=== PATIENT | female | born 1940 | race Caucasian/White ===

== ENCOUNTER → 2016-10-12 | Outpatient (CLI) | payer OTHER | LOC: FIMAGING 12:35 | PROVIDERS: ATTEND Midwife | DX: I86.2 Pelvic varices (principal); D25.9 Leiomyoma of uterus, unspecified ==

== ENCOUNTER 2018-04-25 09:19 | Emergency (ER) | payer OTHER ==
--- NOTE | 2018-04-25 10:11 | EDPHY ---
H & P Stated Complaint: HTN 191/121 L[place] ( IN MARCH) Time Seen by Provider: 04/25/18 10:10 HPI/ROS: HPI: This is a 77-year-old female who presents with Chief Complaint: Hypertension Location: heart Quality: Elevated blood pressure Duration: 2 days Signs and Symptoms: no shortness of breath at rest, no shortness of breath on exertion, no cough, no chest pain, no palpitations, no lower extremity edema, no wheezing, no orthopnea, no paroxysmal nocturnal dyspnea, no fever, no injury/ trauma, no hemoptysis, no carpal pedal spasms Timing: Acute on chronic Severity: [id number] Context: Patient has a history of hypertension secondary to renal carcinoma with nephrectomy in 2004 presents with 2 day history of "not feeling right" and mild dull headache in the morning when she wakes up. Patient reports that she took Advil with resolution of the headache. Patient reports that she recently returned after 7 weeks stay from [facility] where she stayed with her son who is a principal at a school. Patient has been taking lisinopril 10 mg since early 1999. Patient reports that she also had to have lisinopril and Norvasc at 1 time but the Norvasc was stopped in 2004 as her blood pressure was "too low." Patient reports that yesterday and today she woke up with a mild dull generalized headache, not worst headache of her life and denies thunderclap symptoms. She reports that she meditated and did not have resolution of symptoms. She went to her daughter's and checked her blood pressure and it was 150/110. Patient admits that she does have white coat hypertension when she sees her primary care provider and her next appointment is in June. PCP is Dr. Bre Castro. Has had Holter monitor in past for arrhythmias. Modifying Factors: Lisinopril 10 mg and aspirin 81 mg daily Comment: ROS: A comprehensive 10 system review of systems is otherwise negative aside from elements mentioned in the history of present illness. MEDICAL/SURGICAL/SOCIAL HISTORY: Medical history: Hypertension, kidney failure Surgical history: Nephrectomy Social history: Retired. Recent . Denies tobacco, alcohol, drug use. CONSTITUTIONAL: Polite and cooperative, slightly anxious, elderly white female , awake and alert, no obvious distress HEENT: Atraumatic and normocephalic, PERRL, EOMI. Nares patent; no rhinorrhea; no nasal mucosal edema. Tympanic membranes clear. Oropharynx clear, no exudate and moist pink mucosa. Airway patent. No lymphadenopathy. No meningismus. No carotid bruits. Cardiovascular: Normal S1/S2, regular rate, regular rhythm, without murmur rub or gallop. PULMONARY/CHEST: Symmetrical and nontender. Clear to auscultation bilaterally. Good air movement. No accessory muscle usage. ABDOMEN: Soft, nondistended, nontender, no rebound, no guarding, no peritoneal signs, no masses or organomegaly. No CVAT. EXTREMITIES: 2/2 pulses, strength 5/5, no deformities, no clubbing, no cyanosis or edema. NEUROLOGICAL: no focal neuro deficits. GCS 15. SKIN: Warm and dry, no erythema. no rash. Good capillary refill. Source: Patient Exam Limitations: No limitations - Personal History Current Tetanus Diphtheria and Acellular Pertussis (TDAP): No - Medical/Surgical History Hx Asthma: No Hx Chronic Respiratory Disease: No Hx Diabetes: No Hx Cardiac Disease: No Hx Renal Disease: Yes Hx Cirrhosis: No Hx Alcoholism: No Hx HIV/AIDS: No Hx Splenectomy or Spleen Trauma: No Other PMH: HTN KIDNEY FAILURE NEPHRECTOMY - Social History Smoking Status: Never smoked Constitutional: Initial Vital Signs Temperature (C) 36.4 C 04/25/18 09:25 Heart Rate 92 04/25/18 09:25 Respiratory Rate 17 04/25/18 09:25 Blood Pressure 191/121 H 04/25/18 09:25 O2 Sat (%) 93 04/25/18 09:25 O2 Delivery Mode Room Air Allergies/Adverse Reactions: No Known Allergies Allergy (Unverified 11/09/15 08:07) Home Medications: Medication Instructions Recorded Lisinopril [Zestril 20 mg (*)] 20 mg PO 11/09/15 Acyclovir 04/25/18 Lisinopril [Zestril 20 mg (*)] 20 mg PO DAILY #30 tab 04/25/18 Symbicort 160-4.5 Mcg Inh (*) 04/25/18 Medical Decision Making ED Course/Re-evaluation: Vital signs reviewed and show blood pressure 191/121 upon arrival. Placed on site monitor. Patient denies headache upon arrival to the emergency room. She is asymptomatic and has no chest pain/shortness of breath. EKG my read and with attending shows normal sinus rhythm with no acute ischemic changes. IV access, laboratory studies ordered to evaluate for end-organ dysfunction. Labs reviewed. No signs of leukocytosis/anemia/platelet dysfunction/BHARGAVI/ electrolyte imbalance/VTE/ACS. Patient given 20 mg lisinopril in the emergency room. HEART score= intermediate risk I reviewed the share decision making instrument with the patient, including risk of MACE, and the patient (and family) that are in agreement with the chosen disposition being discharged home with Cardiology follow-up.. Patient will increase her lisinopril to 20 mg daily, follow-up with PCP this week for blood pressure monitoring, and patient has been seen by [facility] in the past and will follow-up This patient was seen under the supervision of my secondary supervising physician. I evaluated care for this patient with attending. Discussed this patient with Dr. Figueroa. Differential Diagnosis: Differential diagnosis includes but is not limited to anxiety, hypertension uncontrolled, hypertensive urgency, hypertensive malignancy, acute kidney injury - Data Points Laboratory Results: Laboratory Results 04/25/18 10:05 04/25/18 10:05 04/25/18 04/25/18 04/25/18 11:19 10:24 10:05 WBC RBC Hgb Hct MCV MCH MCHC RDW Plt Count MPV Neut % (Auto) Lymph % (Auto) [place] % (Auto) Eos % (Auto) Baso % (Auto) Nucleat RBC Rel Count Absolute Neuts (auto) Absolute Lymphs (auto) Absolute Monos (auto) Absolute Eos (auto) Absolute Basos (auto) Absolute Nucleated RBC Immature Gran % Immature Gran # D-Dimer Sodium 138 mEq/L mEq/L (135-145) Potassium 3.6 mEq/L mEq/L (3.5-5.2) Chloride 107 mEq/L mEq/L (97-110) Carbon Dioxide 25 mEq/l mEq/l (22-31) Anion Gap 6 mEq/L mEq/L (6-14) BUN 19 mg/dL mg/dL (7-23) Creatinine 1.0 mg/dL mg/dL (0.6-1.0) Estimated GFR 54 Glucose 73 mg/dL mg/dL (70-100) Calcium 9.3 mg/dL mg/dL (8.5-10.4) POC Troponin I 0.00 ng/mL ng/mL 0.01 ng/mL ng/mL (0.00-0.08) (0.00-0.08) 04/25/18 04/25/18 10:05 10:05 WBC 5.75 10^3/uL 10^3/uL (3.80-9.50) RBC 4.76 10^6/uL 10^6/uL (4.18-5.33) Hgb 15.0 g/dL g/dL (12.6-16.3) Hct 44.3 % % (38.0-47.0) MCV 93.1 fL fL (81.5-99.8) MCH 31.5 pg pg (27.9-34.1) MCHC 33.9 g/dL g/dL (32.4-36.7) RDW 12.4 % % (11.5-15.2) Plt Count 174 10^3/uL 10^3/uL (150-400) MPV 12.5 fL H fL (8.7-11.7) Neut % (Auto) 53.8 % % (39.3-74.2) Lymph % (Auto) 25.4 % % (15.0-45.0) [place] % (Auto) 8.3 % % (4.5-13.0) Eos % (Auto) 11.1 % H % (0.6-7.6) Baso % (Auto) 0.9 % % (0.3-1.7) Nucleat RBC Rel Count 0.0 % % (0.0-0.2) Absolute Neuts (auto) 3.09 10^3/uL 10^3/uL (1.70-6.50) Absolute Lymphs (auto) 1.46 10^3/uL 10^3/uL (1.00-3.00) Absolute Monos (auto) 0.48 10^3/uL 10^3/uL (0.30-0.80) Absolute Eos (auto) 0.64 10^3/uL H 10^3/uL (0.03-0.40) Absolute Basos (auto) 0.05 10^3/uL 10^3/uL (0.02-0.10) Absolute Nucleated RBC 0.00 10^3/uL 10^3/uL (0-0.01) Immature Gran % 0.5 % % (0.0-1.1) Immature Gran # 0.03 10^3/uL 10^3/uL (0.00-0.10) D-Dimer 0.42 ug/mLFEU ug/mLFEU (0.00-0.50) Sodium Potassium Chloride Carbon Dioxide Anion Gap BUN Creatinine Estimated GFR Glucose Calcium POC Troponin I Medications Given: Discontinued Medications Lisinopril (Zestril) 20 mg PO EDNOW ONE Stop: 04/25/18 11:47 Last Admin: 04/25/18 11:51 Dose: 20 mg Point of Care Test Results: Chemistry 04/25/18 04/25/18 11:19 10:24 POC Troponin I 0.00 ng/mL ng/mL 0.01 ng/mL ng/mL (0.00-0.08) (0.00-0.08) Departure - Departure Disposition: Home, Routine, Self-Care Clinical Impression: Essential hypertension Condition: Good Instructions: Low-Sodium Diet (ED), Hypertension (ED) Additional Instructions: Please increase Lisinopril to 20 mg daily. Follow-up with primary care provider in the next 5-7 days for blood pressure monitoring and discuss blood pressure medications. Eat a low-salt diet. Follow-up with [facility] in the next 7-10 days. Return to the ER immediately if you experience new, continued or worsened chest pain, chest pain that radiates, chest pain accompanied by exertion or associated with shortness of breath, sweating, nausea, dizziness, back pain, or any other symptoms that concern you. Referrals: [facility] [Provider Group] - As per Instructions Bre Castro MD [Primary Care Provider] - 2-3 days without fail Prescriptions: Lisinopril [Zestril 20 mg (*)] 20 mg PO DAILY #30 tab
[2018-04-25 10:32] LABS: PLATELET COUNT 174 10^3/uL (150-400)
[2018-04-25] MEDS ORDERED: LISINOPRIL 20 MG TAB PO ONE (11:46)
--- NOTE | 2018-04-25 11:48 | CPEKG ---
Test Reason : OPEN Blood Pressure : / mmHG Vent. Rate : 088 BPM Atrial Rate : 067 BPM P-R Int : 125 ms QRS Dur : 091 ms QT Int : 396 ms P-R-T Axes : 069 -46 -03 degrees QTc Int : 480 ms Sinus rhythm Paired ventricular premature complexes Left anterior fascicular block Confirmed by Chong Figueroa ([id number]) on 04/25/2018 11:47:41 AM Referred By: PHYSICIAN ED Confirmed By:Chong Figueroa
[2018-04-25 12:02] VITALS: BP 183/113
== END 2018-04-25 12:02 | disposition home or self-care (01) ==
DX: I15.1 Hypertension secondary to other renal disorders (principal); Z85.528 Personal history of other malignant neoplasm of kidney; Z90.5 Acquired absence of kidney; I44.4 Left anterior fascicular block; Z79.899 Other long term (current) drug therapy; Z79.82 Long term (current) use of aspirin
CPT/HCPCS: 84484-ER

== ENCOUNTER → 2018-08-06 | Outpatient (CLI) | payer OTHER | LOC: FIMAGING 09:36 | PROVIDERS: ATTEND Internal Medicine | DX: M25.551 Pain in right hip (principal) ==

== ENCOUNTER 2018-09-10 08:36 | Emergency (ER) | payer OTHER | END 2018-09-10 09:25 | disposition home or self-care (01) ==